=== PATIENT | female | born 1985 | race Caucasian/White ===

== ENCOUNTER 2017-02-07 05:54 | Emergency (ER) | payer SELFPAY ==
[~2017-02-07] VITALS: Ht 154.9 cm; Wt 45.0 kg
[2017-02-07 06:47] LABS: HEMOGLOBIN 15.4 g/dL (11.7-16.4)
[2017-02-07 06:58] LABS: BLOOD UREA NITROGEN 8 mg/dL (7-18)
[2017-02-07 07:48] VITALS: BP 110/73
== END 2017-02-07 07:53 | disposition home or self-care (01) ==
LOC: ED 07:27
DX: F10.221 Alcohol dependence with intoxication delirium (principal); I10 Essential (primary) hypertension
CPT/HCPCS: 36415; 71010; 80048; 80307; 82040; 84703; 85025

== ENCOUNTER 2018-05-30 15:45 | Emergency (ER) | payer SELFPAY ==
[~2018-05-30] VITALS: Ht 154.9 cm; Wt 43.0 kg
[~2018-05-30 15:45] MED LIST: IRON
[2018-05-30 15:51] VITALS: BP 140/110
== END 2018-05-30 16:56 | disposition left against medical advice (07) ==
LOC: ED 16:50
DX: S00.03XA Contusion of scalp, initial encounter (principal); S10.93XA Contusion of unspecified part of neck, initial encounter; I10 Essential (primary) hypertension; Y04.8XXA Assault by other bodily force, initial encounter; Y93.89 Activity, other specified; Y92.009 Unspecified place in unspecified non-institutional (private) residence as the place of occurrence of the external cause; Y99.8 Other external cause status
CPT/HCPCS: 71045; 99283

== ENCOUNTER 2018-11-02 01:16 | Inpatient (IN) | payer OTHER ==
[~2018-11-02] VITALS: Ht 154.9 cm; Wt 51.0 kg
[2018-11-02 01:43] LABS: MEAN CORPUSCULAR HEMOGLOBIN 35.8 pg (27.0-34.8); MEAN CORPUSCULAR HGB CONC 33.7 g/dL (32.4-35.8); MEAN CORPUSCULAR VOLUME 106.2 fL (80-100); MEAN PLATELET VOLUME 8.2 fL (7.4-10.4); PLATELET COUNT 240 x10^3/uL (130-400); RED BLOOD COUNT 4.62 x10^6/uL (3.82-5.3); RED CELL DISTRIBUTION WIDTH 13.1 % (9.6-15.2)
[2018-11-02 01:54] LABS: ALANINE AMINOTRANSFERASE 43 U/L (12-78); ALBUMIN 4.1 g/dL (3.4-5.0); ANION GAP 24 mmol/L (5-15); CALCIUM 8.1 mg/dL (8.5-10.1); CHLORIDE 99 mmol/L (98-107); CREATININE 1.36 mg/dL (0.55-1.02)
[2018-11-02 01:55] LABS: MD YES
[2018-11-02 01:57] LABS: ALKALINE PHOSPHATASE 158 U/L (45-117); BILIRUBIN,TOTAL 0.9 mg/dL (0.2-1.0); TOTAL PROTEIN 9.2 g/dL (6.4-8.2)
[2018-11-02 01:58] LABS: ANISOCYTOSIS 1+; BAND#(MANUAL) 0.72 x10^3/uL; BANDS%(MANUAL) 4 % (0-7); LYMPH#(MANUAL) 0.18 x10^3/uL (1-3.4); LYMPHS% (MANUAL) 1 % (22-44); MONOS#(MANUAL) 0.72 x10^3/uL (0.3-2.7); MONOS% (MANUAL) 4 % (2-9); POLYCHROMASIA 1+; SEG#(MANUAL) 16.47 x10^3/uL (1.8-6.8); SEGS% (MANUAL) 91 % (42-75)
[2018-11-02 01:59] LABS: <PLATELET ESTIMATE> ADEQUATE; <PLT MORPHOLOGY> NORMAL PLT MORPH
[2018-11-02] MEDS ORDERED: DEXTROSE 50%, 50ML SYRINGE ONE (02:26)
[2018-11-02] MEDS ORDERED: INSULIN REGULAR 100 UNITS/ML, 3ML VIAL ONE (02:27)
[2018-11-02] MEDS ORDERED: INSULIN REGULAR 100 UNITS/ML, 3ML VIAL IVPush ONE (02:30)
[2018-11-02] MEDS ORDERED: SODIUM CHLORIDE 0.9% 1,000ML IVBOLUS ONE ×3 (02:30→06:00)
[2018-11-02] MEDS ORDERED: DEXTROSE 50%, 50ML SYRINGE IVPush ONE (02:30)
[2018-11-02] MEDS ORDERED: ALBUTEROL 0.5%, 20ML NPPB ONE (02:30)
--- NOTE | 2018-11-02 02:35 | NUR ---
PT GIVEN FLUIDS AND MEDS PER DEC. VSS. CALL LIGHT WITHIN REACH. UNABLE TO UA AT THIS TIME.
--- NOTE | 2018-11-02 02:59 | NUR ---
CT WAITING FOR HCG RESULTS
[2018-11-02] MEDS ORDERED: METOCLOPRAMIDE 5 MG/ML, 2ML ONE (03:12)
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
[2018-11-02] MEDS ORDERED: METOCLOPRAMIDE 5 MG/ML, 2ML IVPush ONE (03:30)
[2018-11-02] MEDS ORDERED: OMNIPAQUE 350 MG/ML, 100ML BOTTLE ONE (03:35)
--- NOTE | 2018-11-02 03:40 | NUR ---
AMB TO RR W/ STEADY GAIT. UA SENT TO LAB. TRANSPORTED TO CT.
[2018-11-02 03:46] LABS: MICROSCOPIC INDICATED
[2018-11-02 03:47] LABS: HCG UR SG > 1.030 (1.003-1.030)
[2018-11-02 03:56] LABS: CULTURE INDICATED? NO
--- NOTE | 2018-11-02 04:21 | NUR ---
SLEEPING COMFORTABLY ON GURNEY. VSS. CALL LIGHT WTIHIN REACH. TBADM. AWAITING ADM ORDERS.
[2018-11-02] MEDS ORDERED: SODIUM CHLORIDE 0.9% 1,000 ML IV ONE (04:23)
[2018-11-02] MEDS ORDERED: ONDANSETRON 2MG/ML, 2ML IVPush PRN ×2 (04:30→06:00)
[2018-11-02 05:03] VITALS: BP 138/85
[2018-11-02] MEDS ORDERED: ACETAMINOPHEN 325 MG TABLET PO PRN (06:00)
[2018-11-02] MEDS ORDERED: GUAIFENESIN/DM 200-20MG, 10ML UDC PO PRN (06:00)
[2018-11-02] MEDS ORDERED: KETOROLAC 30 MG/1 ML IVPush ONE (06:00)
[2018-11-02] MEDS ORDERED: SODIUM BICARB 8.4%, 50ML SYRINGE IVPush ONE (06:00)
[2018-11-02] MEDS ORDERED: ONDANSETRON ODT 4 MG PO PRN (06:00)
[2018-11-02] MEDS ORDERED: BUTALB/APAP/CAFFEINE 50MG/325MG/40MG PO PRN (06:00)
[2018-11-02] MEDS: HEPARIN 5,000 UNITS/ML, 1ML SQ SCH ×3 (06:07→21:35)
[2018-11-02] MEDS: SODIUM CHLORIDE 0.9% 1,000 ML IV SCH ×6 (06:08→23:32)
[2018-11-02 06:17] LABS: RAPID INFLUENZA A Negative (Negative); RAPID INFLUENZA B Negative (Negative)
[2018-11-02] MEDS: NICOTINE 21 MG/24 HR PATCH.TD24 TD SCH (06:29)
[2018-11-02 07:01] VITALS: BP 124/86
[2018-11-02] MEDS: PANTOPRAZOLE 40 MG IV IVPush SCH (08:17)
[2018-11-02 10:14] LABS: CALCIUM 7.2 mg/dL (8.5-10.1); CHLORIDE 108 mmol/L (98-107); CREATININE 0.88 mg/dL (0.55-1.02)
[2018-11-02 10:21] LABS: ANION GAP 18 mmol/L (5-15)
[2018-11-02] MEDS ORDERED: SODIUM PHOSPHATE 20 MMOL in SODIUM CHLORIDE 0.9% 500 ML IV ONE (11:30)
[2018-11-02] MEDS ORDERED: MAGNESIUM SULFATE PMX 2GM/50ML 50 ML IV ONE (11:30)
[2018-11-02] MEDS ORDERED: SODIUM BICARB 8.4%,50ML SYR. 150 MEQ in DEXTROSE 5% 1,000 ML IV SCH (12:00)
[2018-11-02] MEDS: SODIUM BICARB 8.4%,50ML SYR. 150 MEQ in DEXTROSE 5% 1,000 ML IV SCH ×2 (12:46→21:32)
[2018-11-02 14:07] VITALS: BP 117/75
[2018-11-02 15:03] LABS: OSMOLALITY,URINE 623 mOsm/kg (500-850)
[2018-11-02 16:25] LABS: ANION GAP 14 mmol/L (5-15); CHLORIDE 106 mmol/L (98-107); CREATININE 0.75 mg/dL (0.55-1.02)
[2018-11-02 19:24] VITALS: BP 107/71
[2018-11-02] MEDS ORDERED: TEMAZEPAM 15 MG CAPSULE PO PRN (21:00)
[2018-11-03 01:06] VITALS: BP 108/74
[2018-11-03] MEDS: SODIUM CHLORIDE 0.9% 1,000 ML IV SCH (05:15)
[2018-11-03] MEDS: HEPARIN 5,000 UNITS/ML, 1ML SQ SCH (06:00)
[2018-11-03] MEDS: NICOTINE 21 MG/24 HR PATCH.TD24 TD SCH (06:07)
[2018-11-03 06:31] LABS: BASOPHILS # (AUTO) 0.02 x10^3/uL (0-0.1); BASOPHILS % (AUTO) 0 % (0-1); EOSINOPHILS % (AUTO) 0 % (1-7); LYMPHOCYTES # (AUTO) 1.46 x10^3/uL (1-3.4); LYMPHOCYTES % (AUTO) 20 % (22-44); MD NO; MEAN CORPUSCULAR HEMOGLOBIN 35.2 pg (27.0-34.8); MEAN CORPUSCULAR HGB CONC 34.1 g/dL (32.4-35.8); MEAN CORPUSCULAR VOLUME 103.2 fL (80-100); MEAN PLATELET VOLUME 8.1 fL (7.4-10.4); MONOCYTES # (AUTO) 0.49 x10^3/uL (0.2-0.8); MONOCYTES % (AUTO) 7 % (2-9); NEUTROPHILS % (AUTO) 73 % (42-75); PLATELET COUNT 154 x10^3/uL (130-400); RED CELL DISTRIBUTION WIDTH 13.1 % (9.6-15.2)
[2018-11-03 06:39] LABS: CHLORIDE 102 mmol/L (98-107)
[2018-11-03 06:58] LABS: ALANINE AMINOTRANSFERASE 25 U/L (12-78); ALBUMIN 2.8 g/dL (3.4-5.0); ALKALINE PHOSPHATASE 87 U/L (45-117); ANION GAP 9 mmol/L (5-15); CALCIUM 7.8 mg/dL (8.5-10.1); CREATININE 0.49 mg/dL (0.55-1.02); TOTAL PROTEIN 5.8 g/dL (6.4-8.2)
[2018-11-03] MEDS ORDERED: POTASSIUM CHLORIDE 20 MEQ TAB.ER.PRT PO ONE (07:30)
[2018-11-03] MEDS ORDERED: POTASSIUM PHOSPHATE 44 MEQ in SODIUM CHLORIDE 0.9% 500 ML IV ONE (07:30)
[2018-11-03] MEDS: PANTOPRAZOLE 40 MG IV IVPush SCH (07:31)
[2018-11-03 07:44] VITALS: BP 131/89
[2018-11-03] MEDS ORDERED: POTASSIUM CHLORIDE 40 MEQ in SODIUM CHLORIDE 0.9% 500 ML IV ONE (08:30)
== END 2018-11-03 10:20 | disposition left against medical advice (07) | DRG 683 ==
LOC: ED 02:45 → EDIP 04:23 → 4WST 04:40
PROVIDERS: ADMIT Hospitalist; ATTEND Hospitalist
DX: N17.9 Acute kidney failure, unspecified (principal); E87.1 Hypo-osmolality and hyponatremia; E87.2 Acidosis; F10.239 Alcohol dependence with withdrawal, unspecified; R65.10 Systemic inflammatory response syndrome (SIRS) of non-infectious origin without acute organ dysfunction; D63.8 Anemia in other chronic diseases classified elsewhere; D72.829 Elevated white blood cell count, unspecified; E83.39 Other disorders of phosphorus metabolism; N83.12 Corpus luteum cyst of left ovary; N83.11 Corpus luteum cyst of right ovary; Z53.21 Procedure and treatment not carried out due to patient leaving prior to being seen by health care provider; D75.1 Secondary polycythemia; E83.42 Hypomagnesemia; E86.0 Dehydration; E87.5 Hyperkalemia; E87.6 Hypokalemia; F17.210 Nicotine dependence, cigarettes, uncomplicated; I10 Essential (primary) hypertension; Z79.4 Long term (current) use of insulin; Z88.8 Allergy status to other drugs, medicaments and biological substances
CPT/HCPCS: 36415; 71045; 74177; 80048; 80053; 80307; 81001; 81025; 83690; 83735; 83930; 83935; 84100; 84703; 85025; 87400; 93005; 96361; 96374; 96375; 99291; G0378; J1644; J1885; J7070; Q9967; C9113; J2765; J3475; J7030; J7040

== ENCOUNTER 2020-04-15 01:40 | Emergency (ER) | payer MEDICAID ==
[~2020-04-15] VITALS: Ht 154.9 cm; Wt 47.0 kg
[2020-04-15 01:46] VITALS: BP 143/91
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
[2020-04-15] MEDS ORDERED: IBUPROFEN 800 MG TABLET PO ONE (03:30)
[2020-04-15] MEDS ORDERED: METHOCARBAMOL 750 MG TABLET PO ONE (03:30)
[2020-04-15] MEDS ORDERED: IBUPROFEN 800 MG TABLET ONE (03:37)
[2020-04-15] MEDS ORDERED: METHOCARBAMOL 750 MG TABLET ONE (03:37)
== END 2020-04-15 03:47 | disposition home or self-care (01) ==
LOC: ED 03:30
DX: G89.11 Acute pain due to trauma (principal); M25.521 Pain in right elbow; R51 Headache; R07.89 Other chest pain; I10 Essential (primary) hypertension; F17.200 Nicotine dependence, unspecified, uncomplicated; Z98.51 Tubal ligation status; Y04.8XXA Assault by other bodily force, initial encounter; Y93.89 Activity, other specified; Y92.048 Other place in boarding-house as the place of occurrence of the external cause; Y99.8 Other external cause status
CPT/HCPCS: 70450; 70486; 71045; 99285

== ENCOUNTER 2021-01-18 15:02 | Emergency (ER) | payer MEDICAID ==
[~2021-01-18] VITALS: Ht 154.9 cm; Wt 36.0 kg
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
[2021-01-18] MEDS ORDERED: ZIPRASIDONE 20 MG INJ IM ONE ×2 (15:30→15:36)
--- NOTE | 2021-01-18 16:06 | NUR ---
break RN note: report taken form SANDOVAL Dawson for a breif break. pt had been placed in 4 pt restraints per MD Constantino's order prior to this RN assuming care. cms assessed and intact, safety checks in place per policy. pt restrained as she has become agressive and attempting to elope multiple times with legal hold in place. bp and spo2 monitors in place. room secure, sitter monitoring from doorway for safety. pt is a&o, resps even and unlabored, tearful. pt speaking clearly. pt requested RN to call her Ellis and tell him to come to [facility] for support. Ellis was called, states "Respectfully, I need to step away from this situation to keep myself together. I would appreciate if no further attempts were made to contact me while I'm working." provided phone number for pt's mother ([phone]). Pt notified that her was reached but is unavailable at this time, pt refuses to allow staff to contact her mother. Mother not contacted per pt request. Report given back to SANDOVAL Dawson who is resuming care.
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
[2021-01-18 16:12] LABS: BASOPHILS % (AUTO) 2 % (0-1); EOSINOPHILS % (AUTO) 1 % (1-7); LYMPHOCYTES % (AUTO) 41 % (22-44); MEAN CORPUSCULAR HEMOGLOBIN 31.9 pg (27.0-34.8); MEAN CORPUSCULAR HGB CONC 33.5 g/dL (32.4-35.8); MEAN PLATELET VOLUME 7.8 fL (7.4-10.4); MONOCYTES % (AUTO) 5 % (2-9); NEUTROPHILS % (AUTO) 52 % (42-75); PLATELET COUNT 368 x10^3/uL (130-400); RED BLOOD COUNT 4.67 x10^6/uL (3.82-5.3); RED CELL DISTRIBUTION WIDTH 17.4 % (9.6-15.2)
[2021-01-18 16:17] LABS: MD NO
[2021-01-18 16:25] LABS: ALANINE AMINOTRANSFERASE 16 U/L (12-78); ALBUMIN 3.8 g/dL (3.4-5.0); ANION GAP 18 mmol/L (5-15); CALCIUM 8.3 mg/dL (8.5-10.1); CHLORIDE 110 mmol/L (98-107); CREATININE 0.74 mg/dL (0.55-1.02); SALICYLATE LEVEL 2.7 mg/dL (2.8-20.0)
[2021-01-18 16:30] LABS: ALKALINE PHOSPHATASE 104 U/L (45-117); BILIRUBIN,TOTAL 0.2 mg/dL (0.2-1.0); TOTAL PROTEIN 7.8 g/dL (6.4-8.2)
--- NOTE | 2021-01-18 16:40 | NUR ---
PT KEEPS YELLING SHE IS GOING TO LEAVE. RESTRAINTS STILL IN PLACE. VSS AT THIS TIME
--- NOTE | 2021-01-18 16:57 | NUR ---
LATE ENTRY 1635: NOTIFIED OF CRITICAL VALUE OF ETOH OF .427 BY LAB, RESTRAINTS REMOVED.
--- NOTE | 2021-01-18 17:34 | NUR ---
PT RESTING COMFORTABLE, VSS AT THIS TIME
--- NOTE | 2021-01-18 18:07 | NUR ---
PT SLEEPING AT THIS TIME. VSS.
--- NOTE | 2021-01-18 18:53 | NUR ---
REPORT FROM LONI NICK. pT SLEEPING EVEN RISE AND FALL OF CJEST OBSERVED. SITTER IN VIEW OF PT.
--- NOTE | 2021-01-18 18:56 | NUR ---
REPORT TO BERTHA
--- NOTE | 2021-01-18 19:27 | NUR ---
pt ambulated to bathroom and requested water. Pt given water and VSS. sitter in view of pt
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
--- NOTE | 2021-01-18 20:52 | NUR ---
REPORT TO MINAN NICK. PT GIVEN A SANDWICH.SITTER IN VIEW OF PT
--- NOTE | 2021-01-18 20:59 | NUR ---
1ST CONTACT C PT. RESTING ON CART IN NAD. EYES CLOSED, RR EVEN NON LABORED. WILL CTM.
--- NOTE | 2021-01-18 23:45 | NUR ---
PT AMBULATORY TO RESTROOM, CHANGED INTO GOWN. GIVEN CRACKERS & WATER. VARUN .13
--- NOTE | 2021-01-19 01:13 | NUR ---
PT SLEEPING, RR EVEN NON LABORED. NAD.. WILL CTM. SITTER OUTSIDE OF ROOM.
--- NOTE | 2021-01-19 02:12 | NUR ---
PT SLEEPING, RR EVEN NON LABORED. SITTER OUTSIDE OF ROOM. WILL CTM.
--- NOTE | 2021-01-19 03:07 | NUR ---
PT SLEEPING, RR EVEN NON LABORED. SITTER OUTSIDE OF ROOM. WILL CTM.
[2021-01-19] MEDS ORDERED: LORazepam 1MG TABLET ONE (03:59)
[2021-01-19] MEDS ORDERED: LORazepam 1MG TABLET PO ONE (04:00)
[2021-01-19 04:06] VITALS: BP 117/76
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
== END 2021-01-19 04:41 | disposition home or self-care (01) ==
LOC: ED 20:06
DX: F33.3 Major depressive disorder, recurrent, severe with psychotic symptoms (principal); R45.851 Suicidal ideations; F10.221 Alcohol dependence with intoxication delirium; Y90.0 Blood alcohol level of less than 20 mg/100 ml; F17.210 Nicotine dependence, cigarettes, uncomplicated; R00.0 Tachycardia, unspecified; F17.200 Nicotine dependence, unspecified, uncomplicated; I10 Essential (primary) hypertension
CPT/HCPCS: 36415; 80053; 80143; 80179; 80320; 84703; 85025; 96372; 99283; 99406; J3486; G0480